=== PATIENT | male | born 1950 | race Caucasian/White ===

== ENCOUNTER 2016-10-04 15:39 | Emergency (ER) | payer OTHER ==
--- NOTE | 2016-10-04 15:53 | PDOC ---
Hand / Wrist Injury HPI - General Chief Complaint: Upper Extremity Problem/Injury Stated Complaint: right wrist pain Date Seen by Provider: 10/04/16 Time Seen by Provider: 15:49 Source: POSITIVE: Patient Exam Limitations: POSITIVE: No limitations Nurse's Notes Reviewed & Considered: Yes - History of Present Illness Initial Comments: Patient comes in today with chief complaint of right wrist pain. History: Patient fell yesterday towards his right side landing with his arm outstretched and his right hand contacted the ground on the medial margin. Now with increased pain and decreased range of motion. Have you received a tetanus shot in the past 10 years?: Unknown Body Location Affected: REPORTS: Upper Extremity (R) (Wrist) Timing: REPORTS: Abrupt Duration: <24 hours Severity: Mild Location at Time of Onset: REPORTS: Home Context: REPORTS: Fall Location of Injury: REPORTS: Right, Wrist Quality: REPORTS: "Pain", Sharpness, Stabbing Modifying Factors: REPORTS: Movement, Rest Any Prior Injuries Related to Current Complaint?: No - Patient Home Medications Home Medications: Home Medications NK [No Home Medications Reported] 10/04/16 - Patient Allergies Allergies/Adverse Reactions: Allergies Allergy/AdvReac Type Severity Reaction Status Date / Time No Known Drug Allergies Allergy NOT Verified 10/04/16 15:46 APPLICABLE Past Medical History - heen HEENT History: Denies History Cardiovascular History: Denies History Respiratory History: Denies History Gastrointestinal History: Denies History Genitourinary History: Denies History Endocrine History: Denies History Musculoskeletal History: Denies History Neurological History: Denies History Blood Disorders: Denies History Psychiatric History: Denies History Male Reproductive History: Denies History Cancer History: Denies History In Past Year Been Physically Harmed or Verbally Threatened: No History of MDRO: No Tobacco Use: Never Smoker Alcohol Use: Occasionally Substance Use Type: None Previous Surgical History: Yes Type / Date of Surgery: FATTY TUMOR REMOVED RIGHT SHOULDER AND SIDE OF NECK. RIGHT GANGLION CYST REMOVAL Significant Family History: No pertinent family hx ROS - Limitations ROS Limitations: No Limitations Constitution: REPORTS: Denies Symptoms Cardiovascular: REPORTS: Denies Cardiac Symptoms Respiratory: REPORTS: Denies Resp Symptoms Neurological: REPORTS: Denies Neuro Symptoms Gastrointestinal: REPORTS: Denies GI Symptoms Endocrine: REPORTS: Denies Symptoms Musculoskeletal: REPORTS: Joint Pain Genitourinary: REPORTS: Denies Symptoms Eyes: REPORTS: Denies Symptoms ENT: REPORTS: Denies Symptoms Skin: REPORTS: Denies Skin Symptoms Lympathic: REPORTS: Denies Lympathic Symptoms Immunologic: POSITIVE: Denies Symptoms Psychiatric: POSITIVE: Denies Psych Symptoms Hand / Wrist Injury Exam - General Appearance General Appearance: POSITIVE: Alert, Cooperative, No Acute Distress, No Evidence of Trauma - Extremities Upper Extremity: POSITIVE: Normal Inspection, No Evidence of FB, Bony Tenderness , Uninjured Above Wrist Neurovascular / Tendon: POSITIVE: Sensation Normal, Motor Normal, No Vascular Compromise, Tendon Function Normal Skin: POSITIVE: Warm, Dry Hand / Wrist Injury Progress - Results Reviewed by me Xrays/CTs/US Reviewed by me: Yes Discussed with Radiologist: No - Patient's Progress Pain Medication Addressed: POSITIVE: Patient Refused Re-Examine Time: 16:22 Status: POSITIVE: Improved MDM / ED Course: Patient brought into the emergency Department, examined, radiographic studies ordered. He refused pain medication. X-rays reveal no acute osseous abnormalities per my interpretation. Assessment: Wrist strain. Plan: Cock-up splint, ice alternating heat, Aleve. Follow-up if no improvement in 7-10 days. - Consult Counseled: POSITIVE: Patient, RE: Radiology Results, RE: DX Patient Care Time - Estimated PCT Patient Care Time (In Minutes): 15 Vital Signs - Recent Vital Signs Vital Signs: Vital Signs (Last 8 hours) Temp Pulse Resp BP Pulse Ox 10/04/16 15:39 98.5 F 100 18 136/93 94 - VS Reviewed Vital Signs Reviewed: Yes Discharge Clinical Impression: Sprain Discharge Disposition: Discharged to Home Condition: Good Patient Instructions Given at Discharge: Wrist Injury (ED)
[2016-10-04 15:55] VITALS: RESP 18; TEMP 98.5
--- NOTE | 2016-10-04 17:18 | DI ---
RIGHT WRIST, 10/04/2016 3:48 PM: Clinical History: Right wrist pain. Injury. The patient fell. Previous Exam: None at this facility. 3 views are submitted. There is no acute soft tissue, osseous, or joint abnormality. Reading: Normal right wrist exam.
== END 2016-10-04 17:24 | disposition home or self-care (01) ==
LOC: ER 15:39
DX: S63.501A Unspecified sprain of right wrist, initial encounter (principal); W18.39XA Other fall on same level, initial encounter; Y99.0 Civilian activity done for income or pay
CPT/HCPCS: 73110; 99282

== ENCOUNTER 2016-12-01 11:40 | Emergency (ER) | payer OTHER ==
[2016-12-01 12:20] VITALS: RESP 22; TEMP 96.5
--- NOTE | 2016-12-01 13:16 | DI ---
RIGHT RIB SERIES WITH PA CHEST X-RAY, 12/01/2016 12:32 PM: Clinical History: Trauma to the right ribs. PA Chest: Previous Exam: None at this facility. There is no acute soft tissue or bony abnormality. Heart size is normal. Lungs are clear. Mediastinal structures are normal. RIGHT Rib Series: There is no rib fracture noted. The visualized portions of the lung are clear. Reading: Normal right rib series and PA chest x-ray.
--- NOTE | 2016-12-01 13:16 | DI ---
AP PELVIS and RIGHT HIP, 12/01/2016 12:31 PM: Clinical History: Trauma to the right hip. Previous Exam: None at this facility. There is no soft tissue abnormality. The bony structures of the pelvis are normal. 2 views of the rig ht hip are normal. Readin. Normal right hip exam. 2. The AP pelvis view is unremarkable.
--- NOTE | 2016-12-01 13:29 | DI ---
RIGHT SHOULDER, 12/01/2016 12:34 PM: Clinical History: Trauma. Previous Exam: None at this facility. 3 views are submitted. There is no acute soft tissue, osseous, or joint abnormality. The visualized p ortions of the right lung and apex are normal. Reading: Normal right shoulder exam.
--- NOTE | 2016-12-01 13:32 | DI ---
LUMBAR SPINE SERIES, 12/01/2016 1:15 PM: Clinical History: Low back pain secondary to a fall. Previous Exam: None at this facility. 3 routine upright views are submitted. The vertebral bodies are of normal height and size. No fractur es are noted. The disc spaces are normal. The pedicles and posterior elements are unremarkable. Both SI joints are normal. Reading: Normal lumbar spine series.
--- NOTE | 2016-12-01 17:58 | PDOC ---
Fall HPI - General Chief Complaint: Fall Stated Complaint: FELL OUT OF TRUCK Date Seen by Provider: 12/01/16 Time Seen by Provider: 12:20 Source: POSITIVE: Patient Exam Limitations: POSITIVE: No limitations Nurse's Notes Reviewed & Considered: Yes - History of Present Illness Initial Comments: The patient is a 66-year-old male. He states that approximately one hour prior to arriving to the emergency room he was getting out of his truck. He states he slipped and fell approximately 2 feet onto some pavement. He fell on to his right lateral thorax and right posterior shoulder and hip. He presents to the emergency room complaining of pain over the right lateral thorax, posterior aspect of the right shoulder, right paralumbar area and posterior aspect of the right hip. He is ambulatory to the emergency room. He states he sustained no head, neck, chest or abdominal trauma. No focal neurologic symptoms. Have you received a tetanus shot in the past 10 years?: Unknown Body Location Affected: REPORTS: Upper Extremity (R) (Right shoulder), Lower Extremity (R) (Right hip), Chest (Right lateral thorax), Back (Right paralumbar area) Timing: REPORTS: Abrupt Duration: 1 hour Severity: Moderate Context of Fall: REPORTS: Slipped, Lost Balance. DENIES: Tripped, Became Dizzy , Fainted, Reported Assault Location of Fall: REPORTS: Work Fell From Height (in feet): 2 Quality: REPORTS: "Pain" Associated Symptoms: REPORTS: Recalls Injury, Recalls Coming to ER. DENIES: Dazed, Seizure, Trouble Breathing, Memory Impairment, Blow to Head, Lost Consciousness, Other Location of Injuries / Pain: REPORTS: Right, Chest, Lower Back, Shoulder, Hip Any Prior Injuries Related to Current Complaint?: No - Patient Home Medications Home Medications: Home Medications HYDROcodone/APAP 10/325 Tab [[place] 10/325 Tab] 1 tab PO Q4H PRN #12 tab Naproxen Sodium [Aleve] 220 mg PO PRN PRN 12/01/16 - Patient Allergies Allergies/Adverse Reactions: Allergies Allergy/AdvReac Type Severity Reaction Status Date / Time No Known Drug Allergies Allergy NOT Verified 12/01/16 12:12 APPLICABLE Past Medical History - heen HEENT History: Denies History Cardiovascular History: Denies History Respiratory History: Denies History Gastrointestinal History: Denies History Genitourinary History: Denies History Endocrine History: Denies History Musculoskeletal History: Denies History Prosthesis or Implant: No Neurological History: Denies History Blood Disorders: Denies History Psychiatric History: Denies History Male Reproductive History: Denies History Cancer History: Denies History In Past Year Been Physically Harmed or Verbally Threatened: No History of MDRO: No Tobacco Use: Smoker Current Status Unknown Alcohol Use: Occasionally Substance Use Type: None Previous Surgical History: Yes Type / Date of Surgery: FATTY TUMOR REMOVED RIGHT SHOULDER AND SIDE OF NECK. RIGHT GANGLION CYST REMOVAL Anesthesia Reactions: No Malignant Hyperthermia: No Family History of Malignant Hyperthermia: No Significant Family History: No pertinent family hx Past Medical History Reviewed: Reviewed - No Changes ROS - Limitations ROS Limitations: No Limitations Constitution: REPORTS: Denies Symptoms Cardiovascular: REPORTS: Denies Cardiac Symptoms Respiratory: REPORTS: Denies Resp Symptoms Neurological: REPORTS: Denies Neuro Symptoms Gastrointestinal: REPORTS: Denies GI Symptoms Endocrine: REPORTS: Denies Symptoms Musculoskeletal: REPORTS: Back Pain (Right paralumbar back pain), Joint Pain ( Posterior right shoulder and posterior right hip), Recent Injury (As above) Genitourinary: REPORTS: Denies Symptoms Eyes: REPORTS: Denies Symptoms ENT: REPORTS: Denies Symptoms Skin: REPORTS: Other (Superficial abrasions posterior aspect of right elbow) Lympathic: REPORTS: Denies Lympathic Symptoms Immunologic: POSITIVE: Denies Symptoms Psychiatric: POSITIVE: Denies Psych Symptoms Fall Physical Exam - General Appearance General Appearance: POSITIVE: Alert, Cooperative, No Acute Distress, No Evidence of Trauma - HEENT HEENT: POSITIVE: Head Inspection Nml, Eyes Inspection Nml, Ears Inspection Nml, Nose Inspection Nml, Oral/Dental Inspect. Nml, Pharynx Inspect. Nml, PERRL, EOMI - Pupil Size Pupil Size: 4 mm: Bilateral (PERRLA) - Neck Neck: POSITIVE: Non Tender, Painless ROM, Trachea Midline, Nexus Criteria Negative - Respiratory / CVS Respiratory / CVS: POSITIVE: No Ecchymosis, Breath Sounds Normal, No Respiratory Distress, Heart Sounds Normal, Regular Rate/Rhythm, Rib Tenderness ( Right lateral thorax), Tenderness (Right lateral thorax), See Diagram. NEGATIVE : Chest Non Tender, Rib Palpable FX, Crepitus, SubQ Emphysema, Splinting, Paradoxical Movements, Decreased Breath Sounds, Ecchymosis, Swelling, Abrasion(s ), Wheezes, Rales, Rhonchi, Tachycardia, Bradycardia, Irregularly Irreg Rate Peripheral Pulses: Radial (R): 2+, Radial (L): 2+ - Abdomen Abdomen: Soft: (All Quadrants), Normal Bowel Sounds: (All Quadrants), Denies Tenderness: (All Quadrants), No Splenomegaly: (All Quadrants), No Hepatomegaly: (All Quadrants), No Guarding: (All Quadrants), No Rebound: (All Quadrants), No Palpable Pulse: (All Quadrants), No Palpabale Mass: (All Quadrants), No Distention: (All Quadrants), No Rigidity: (All Quadrants) - Neuro / Psych Neuro / Psych: POSITIVE: Oriented X3, 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 NEGATIVE: Ecchymosis, Laceration, Crepitus, Diaphoresis, Decubitus - Back Back: POSITIVE: No CVA Tenderness, No Vertebral Tenderness, See Diagram ( Discomfort on palpation right paralumbar musculature). NEGATIVE: Non Tender, Painless ROM, Vertebral Pt. Tenderness, CVA Tenderness (R), CVA Tenderness (L), Muscle Spasm - Extremities Extremity Assessment: Non-Tender: (LUE), (RLE), (LLE), Normal ROM: (ALL), No Edema: (ALL), Normal Inspection: (LLE), (RLE), (LUE), No Swelling: (ALL), Pelvis Stable: (ALL), Normal Tendon Exam: (ALL), Tender: (RUE) Additional Extremities Details: Examination of right upper extremity show some moderate discomfort on firm palpation posterior aspect of right shoulder; range of motion of the shoulder is intact. No gross deformities. No sensory motor or vascular symptoms. There is a superficial abrasion to the posterior aspect of the right elbow. Joint Exam: POSITIVE: Normal ROM, Antalgic Gait. NEGATIVE: Ligamentous Instability, Effusion, Click, Crepitus, Limited ROM, Painful, Unable to Bear Weight, Joint Effusion Images - Complete Complete: 1 - Discomfort on palpation 2 - Superficial abrasion 3 - Discomfort on palpation 4 - Discomfort on palpation 5 - Discomfort on palpation Fall Progress - Results Reviewed by me Xrays/CTs/US Reviewed by me: Yes Discussed with Radiologist: Yes Radiology Findings: X-ray right shoulder, x-ray right rib detail with AP chest, x-ray lumbosacral spine, x-ray right hip all normal. - Patient's Progress Pain Medication Addressed: POSITIVE: Yes (Hydrocodone/APAP, one every 6 hours as necessary) School/Work Release Addressed: POSITIVE: Yes Re-Examine Time:: 13:55 Re-Examine Comment: Radiology reports discussed with patient and his Status: POSITIVE: Unchanged, Re-Examined - Consult Counseled: POSITIVE: Patient, Family, RE: Radiology Results, RE: DX, RE: Need for F/U Patient Care Time - Estimated PCT Patient Care Time (In Minutes): 30 Vital Signs - Recent Vital Signs Vital Signs: Vital Signs (Last 8 hours) Temp Pulse Resp BP Pulse Ox 12/01/16 11:54 96.5 F L 85 22 141/83 95 - VS Reviewed Vital Signs Reviewed: Yes Discharge Clinical Impression: Lumbar strain, Contusion Discharge Disposition: Discharged to Home Condition: Stable Prescriptions / Orders: HYDROcodone/APAP 10/325 Tab [[place] 10/325 Tab] 1 tab PO Q4H PRN #12 tab PRN Reason: Pain Patient Instructions Given at Discharge: Low Back Strain (ED), Contusion in Adults (ED) Additional Instructions: Your x-rays are all normal. There is no rib fractures identified on your rib x- ray, however, occasionally you can have a nondisplaced fracture of rib which does not show on an x-ray. Please take deep breaths hourly to keep your lungs well expanded. Tylenol or Advil for mild pain; Tylenol/hydrocodone, one every 4 hours as necessary for more severe pain. Rest. Warm moist compresses to area of discomfort. I given you a work excuse for 72 hours. Return anytime if condition worsens. Follow-up with your primary care provider. Especially return to the emergency room if you develop fevers, coughs, severe shortness of breath. Follow Up With: NONE,NONE [Primary Care Provider] - (Instructions as above. Return here anytime if condition worsens. Follow-up with your primary care provider.)
== END 2016-12-01 14:06 | disposition home or self-care (01) ==
LOC: ER 11:40
DX: S39.012A Strain of muscle, fascia and tendon of lower back, initial encounter (principal); S50.311A Abrasion of right elbow, initial encounter; M25.511 Pain in right shoulder; M25.551 Pain in right hip; W17.89XA Other fall from one level to another, initial encounter
CPT/HCPCS: 71101; 72100; 73030; 73502; 99283

== ENCOUNTER 2016-12-04 10:02 | Emergency (ER) | payer OTHER ==
[2016-12-04 10:20] VITALS: RESP 16; TEMP 97.6
[2016-12-04] MEDS ORDERED: ONDANSETRON 4 MG/2 ML VIAL IVP ONE (10:23)
[2016-12-04] MEDS ORDERED: Sodium Chloride 0.9% 1,000 ML PRIMARY IV ONE (10:23)
[2016-12-04] MEDS ORDERED: NORMAL SALINE 10 ML SYRINGE FLUSH IVP PRN (10:23)
[2016-12-04] MEDS ORDERED: MORPHINE SULFATE 2 MG/1 ML IVP ONE (10:23)
--- NOTE | 2016-12-04 10:47 | PDOC ---
General Adult HPI - General Chief Complaint: General Medical Stated Complaint: NO BM/ABD PAIN SINCE FALL MONDAY Date Seen by Provider: 12/04/16 Time Seen by Provider: 10:10 Source: POSITIVE: Patient Exam Limitations: POSITIVE: No limitations Nurse's Notes Reviewed & Considered: Yes - History of Present Illness Initial Comment: The patient is a 66-year-old male who presents to the emergency department with continued back and rib pain. 3 days ago he fell from a step on his truck and landed primarily on his right side. He states that initially he had the wind knocked out of him and it took him 15 or 20 minutes before he could get up and move around. He landed primarily on his right shoulder, right side of his ribs and pelvis. He did not hit his head and denies any loss of consciousness. He was evaluated here in the emergency department and had x-rays including chest x- ray, pelvis, shoulder and lumbar spine all of which were unremarkable. He was prescribed hydrocodone for pain. He states that since he fell he has not been able to have a bowel movement. He has continued tearing pain in his right lower back and pelvis region. This is worsened with movement. His pain at rest is about a 3 or 4 out of 10 and with movement rises to a 10 out of 10. He also has pain in the posterior aspect of his ribs on the right side. He stopped taking the hydrocodone because he thought this might be making him constipated and has been taking only Aleve the past 24 hours. He denies any difficulty with urination or hematuria. He has not had any cough or increased shortness of breath. He is concerned about internal bleeding and injury. Have you received a tetanus shot in the past 10 years?: Unknown - Patient Home Medications Home Medications: Home Medications HYDROcodone/APAP 10/325 Tab [[place] 10/325 Tab] 1 tab PO Q4H PRN #12 tab Naproxen Sodium [Aleve] 220 mg PO PRN PRN 12/01/16 oxyCODONE/APAP 5/325 Tab [Percocet 5/325 Tab] 1 tab PO Q4H PRN #15 tab - Patient Allergies Allergies/Adverse Reactions: Allergies Allergy/AdvReac Type Severity Reaction Status Date / Time No Known Drug Allergies Allergy NOT Verified 12/01/16 12:12 APPLICABLE Past Medical History - heen HEENT History: Denies History Cardiovascular History: Denies History Respiratory History: Denies History Gastrointestinal History: Denies History Genitourinary History: Denies History Endocrine History: Denies History Musculoskeletal History: Denies History Prosthesis or Implant: No Neurological History: Denies History Blood Disorders: Denies History Psychiatric History: Denies History History of Sexually Transmitted Diseases: No Cancer History: Denies History In Past Year Been Physically Harmed or Verbally Threatened: No History of MDRO: No History of Other Communicable Diseases: No Tobacco Use: Never Smoker Alcohol Use: Other Type of alcohol normally used: Beer How much alcohol do you normally drink a day?: daily Substance Use Type: None Previous Surgical History: Yes Type / Date of Surgery: FATTY TUMOR REMOVED RIGHT SHOULDER AND SIDE OF NECK. RIGHT GANGLION CYST REMOVAL Anesthesia Reactions: No Malignant Hyperthermia: No Significant Family History: No pertinent family hx Past Medical History Reviewed: Reviewed - No Changes ROS - Limitations ROS Limitations: No Limitations Constitution: DENIES: Chills, Fever Cardiovascular: REPORTS: Denies Cardiac Symptoms Respiratory: REPORTS: Hurts To Breathe. DENIES: Cough Non Productive, Cough Productive, Shortness Of Breath Neurological: DENIES: Headache, Numbness, Weakness Gastrointestinal: REPORTS: Abdominal Pain, Nausea, Constipation (No BM since the accident). DENIES: Vomitting Genitourinary: REPORTS: Denies Symptoms ENT: REPORTS: Denies Symptoms Skin: REPORTS: Denies Skin Symptoms. DENIES: Rash General Adult Exam - General Appearance General Appearance: POSITIVE: Alert, Cooperative, No Acute Distress - HEENT HEENT: POSITIVE: Head Inspection Nml, Eyes Inspection Nml, Ears Inspection Nml, Nose Inspection Nml, Pharynx Inspect. Nml - Neck Neck: POSITIVE: Normal Inspection, Other (No midline C-spine tenderness) - Respiratory Respiratory: POSITIVE: No Respiratory Distress, Breath Sounds Normal, Other (He does have tenderness on the right posterior and lateral chest wall) - Cardiovascular Cardiovascular: POSITIVE: Regular Rate & Rhythm, No Murmur Peripheral Pulses: Dorsalis-pedis (R): 2+, Dorsalis-pedis (L): 2+ - Abdomen Abdomen: Soft: (All Quadrants), Normal Bowel Sounds: (All Quadrants), No Distention: (All Quadrants) Additional Abdominal Details: He has some mild diffuse abdominal tenderness - Back Back: POSITIVE: Other (He does have tenderness in the lumbar region as well as the right CVA) - Skin Skin: POSITIVE: Normal Color, No Rash - Extremities Extremity: Normal ROM: (All Extremities), Normal Inspection: (All Extremities) - Neurological / Psychological Neurological: POSITIVE: Oriented X3, Motor Normal, Sensation Normal, Other (No focal neurologic deficits) General Adult Progress - Results Reviewed by me Xrays/CTs/US Reviewed by me: Yes Discussed with Radiologist: Yes Radiology Findings: CT scan of his chest with IV contrast reveals some increased densities in the right upper and midlungs as well as a pulmonary nodule in the lung base of etiology per radiologist. There is no acute fracture , no pneumothorax or hemothorax. CT scan of the abdomen and pelvis reveals no evidence of fracture to fine her pelvis, no acute abdominal injury per radiologist. Lab Results Reviewed: Yes Lab Results:: Laboratory Results 12/04/16 12/04/16 Range/Units 10:35 11:55 WBC 5.01 (4.8-10.8) 10^3/uL RBC 5.01 (4.70-6.10) 10^6/uL Hgb 15.5 (14.0-18.0) g/dL Hct 45.9 (42.0-52.0) % MCV 91.6 H (80-90) FL MCH 30.9 (27-31) PG MCHC 33.8 (33-37) g/dL RDW Std Deviation 46.5 (39-50) fL RDW Coeff of James 14.1 (11.5-14.5) % Plt Count 281 (140-350) 10*3/uL MPV 10.3 (7.4-12.2) FL Immature Gran % (Auto) 0.2 (0-5) % Neut % (Auto) 63.4 (50-80) % Lymph % (Auto) 20.4 (10-50) % [place] % (Auto) 13.0 (5-15) % Eos % (Auto) 2.4 (0-8) % Baso % (Auto) 0.6 (0-1) % Immature Gran # (Auto) 0.01 10*3/UL Neut # (Auto) 3.18 10*3/UL Lymph # (Auto) 1.02 10*3/uL [place] # (Auto) 0.65 (0.3-0.8) 10*3/UL Eos # (Auto) 0.12 10*3/UL Baso # (Auto) 0.03 10*3/UL WBC Morphology Comment Normal morphology (NORM) Plt Morphology Comment Normal morphology (NORM) RBC Morph Comment Normal morphology (NORM) Sodium 140 (135-145) meq/L Potassium 4.5 (3.8-5.2) meq/L Chloride 103 (98-112) meq/L Carbon Dioxide 24 (23-33) meq/L Anion Gap 13 (5-20) BUN 14 (7-22) mg/dL Creatinine 0.9 (0.70-1.50) mg/dL Estimated GFR > 60 (>60 ml/min/1.73m(2)) BUN/Creatinine Ratio 15.55 (6-20) Glucose 108 (78-110) mg/dL Calculated Osmolality 291.0 (267-292) mOsm/kg Calcium 9.7 (8.7-10.7) mg/dL Total Bilirubin 0.9 (0.3-1.2) mg/dL AST 27 (21-57) IU/L ALT 31 (21-72) IU/L Alkaline Phosphatase 73 (38-126) IU/L Total Protein 7.6 (6.1-8.0) g/dL Albumin 4.5 (3.5-4.8) g/dL Globulin 3.1 (2.50-4.10) g/dL Albumin/Globulin Ratio 1.40 (1.3-2.0) mg/g Amylase 72 (30-110) U/L Lipase 69 (23-300) IU/L Ur Collection Type Clean catch urine Urine Color Yellow Urine Clarity Clear (CLEAR) Urine pH 7.0 (5.0-8.5) Ur Specific [place] 1.010 (1.005-1.030) Urine Protein Negative (NEG) mg/dl Urine Glucose (UA) Negative (NEG) mg/dL Urine Ketones Negative (NEG) Urine Occult Blood Negative (NEG) Urine Nitrate Negative (NEG) Urine Bilirubin Negative (NEG) Urine Urobilinogen 0.2 (0.2) EU/dL Ur Leukocyte Esterase Negative (NEG) Ur Culture Indicated? Culture not set - Patient's Progress MDM / ED Course: An IV was established and the patient received morphine 2 mg and Zofran 4 mg IV for pain. Laboratory results are all unremarkable, emesis is normal. CT scan of the chest abdomen pelvis with IV contrast reveals some increased densities in the right upper lobe and right middle lobe of unknown etiology per radiologist. He also has a pulmonary nodule. The radiologist recommended follow-up. These densities given his clinical history may represent some degree of pulmonary contusion. He did not any evidence of acute fracture per radiologist in his ribs, spine or pelvis. His clinical presentation is consistent with nondisplaced rib fractures which might not be visible on CT. By history the patient also has had constipation since his fall. He is advised to start MiraLAX daily. In addition he was prescribed Percocet as needed for pain. He was advised to continue NSAIDs. He will return to the emergency room if increased pain, worsening or change in symptoms. Recommend follow-up with primary care in 3-5 days. - Consult Counseled: POSITIVE: Patient, Family, RE: Lab Results, RE: Radiology Results, RE : DX, RE: Need for F/U Patient Care Time - Estimated PCT Patient Care Time (In Minutes): 35 Vital Signs - Recent Vital Signs Vital Signs: Vital Signs (Last 8 hours) Temp Pulse Resp BP Pulse Ox 12/04/16 10:09 97.6 F 96 16 135/93 95 - VS Reviewed Vital Signs Reviewed: Yes Discharge Clinical Impression: Constipation, Contusion, Rib contusion, Lumbar strain Condition: Stable Prescriptions / Orders: oxyCODONE/APAP 5/325 Tab [Percocet 5/325 Tab] 1 tab PO Q4H PRN #15 tab PRN Reason: Pain Patient Instructions Given at Discharge: Constipation (ED), Contusion in Adults (ED), Back Pain (ED) Additional Instructions: Your lab work and urinalysis were all normal today. In addition the CAT scan done of your chest, abdomen and pelvis does not reveal any obvious fracture or obvious internal injury. There was some increased density in the right upper and midlung which the radiologist thought could be infectious however this could also represent bruising related to your recent fall. There was no visible fracture in the ribs however it is certainly possible you could have a nondisplaced fracture of the ribs on the right side. There was no evidence of fracture in the spine or pelvis. At this point I would recommend continuing Aleve 2 tablets twice a day with food. You have also been prescribed Percocet 5 /325 which she can take one every 4-6 hours as needed for pain. Because of your recent injury as well as taking pain medication this has slowed her bowels down. Would recommend taking MiraLAX 1 capful in a glass of juice daily. Return to the emergency room if increased pain, difficulty breathing, increased abdominal pain or vomiting, fever, any worsening or change in symptoms. Recommend follow-up with primary care in 3-4 days. Follow Up With: NONE,NONE [Primary Care Provider] -
[2016-12-04 10:51] LABS: BASOPHILS # (AUTO) 0.03 10*3/UL; BASOPHILS % (AUTO) 0.6 % (0-1); EOSINOPHILS # (AUTO) 0.12 10*3/UL; EOSINOPHILS % (AUTO) 2.4 % (0-8); HEMATOCRIT 45.9 % (42.0-52.0); HEMOGLOBIN 15.5 g/dL (14.0-18.0); LYMPHOCYTES # (AUTO) 1.02 10*3/uL; MEAN CORPUSCULAR HEMOGLOBIN 30.9 PG (27-31); MEAN CORPUSCULAR HGB CONC 33.8 g/dL (33-37); MEAN PLATELET VOLUME 10.3 FL (7.4-12.2); MONOCYTES # (AUTO) 0.65 10*3/UL (0.3-0.8); NEUTROPHILS # (AUTO) 3.18 10*3/UL; NEUTROPHILS % (AUTO) 63.4 % (50-80); RED BLOOD COUNT 5.01 10^6/uL (4.70-6.10)
[2016-12-04 10:55] LABS: PLATELET MORPHOLOGY COMMENT NORMAL MORPHOLOGY (NORM); RBC MORPHOLOGY COMMENT NORMAL MORPHOLOGY (NORM); WBC MORPHOLOGY COMMENT NORMAL MORPHOLOGY (NORM)
[2016-12-04 11:06] LABS: BLOOD UREA NITROGEN 14 mg/dL (7-22); BUN/CREATININE RATIO 15.55 (6-20); CALCIUM 9.7 mg/dL (8.7-10.7); EST GLOMERULAR FILTRATION > 60 (>60 ml/min/1.73m(2)); LIPASE 69 IU/L (23-300); SERUM ALBUMIN 4.5 g/dL (3.5-4.8)
[2016-12-04 12:01] LABS: BILIRUBIN,URINE NEGATIVE (NEG); CLARITY,URINE CLEAR (CLEAR); COLOR,URINE YELLOW; GLUCOSE, URINE (UA) NEGATIVE (NEG); NITRATE,URINE NEGATIVE (NEG); OCCULT BLOOD,URINE NEGATIVE (NEG); PROTEIN,URINE NEGATIVE (NEG); UROBILINOGEN,URINE 0.2 EU/dL (0.2)
[2016-12-04 12:02] LABS: URINE SAMPLE TYPE CLEAN CATCH URINE
--- NOTE | 2016-12-04 12:36 | DI ---
HISTORY: Status post fall. COMPARISON STUDIES: None available. TECHNIQUE: Contiguous 3 mm axial images were obtained from the upper abdomen through the pelvis follo wing IV contrast. 383 images. FINDINGS: LUNG BASE: A 1 cm nodule is noted at the left lung base. The lung bases are otherwise clear. No evide nce of airspace consolidation. No pleural effusion. ABDOMEN: The liver, gallbladder and spleen are unremarkable. No liver masses seen. Pancreatic duct is mildly enlarged, without discrete mass lesion. No common bile duct enlargement given patient's age a nd limitations of CT. No evidence of pancreatic mass and adrenal glands appear normal. Normal colon and small bowel. No pericolonic or small bowel mesenteric inflammatory fat stranding. No rmal appendix with no secondary signs of appendicitis. Left and right kidney are unremarkable. No renal stones seen. No evidence of obstructive uropathy. No evidence of pneumoperitoneum, free fluid or of peritoneal abscess. PELVIS: No suspicious pelvic or abdominal adenopathy. VESSELS: Normal enhancement. No significant calcified atherosclerotic disease burden. MUSCULOSKELETAL: Bone mineralization is normal. Asymmetric right SI arthrosis present. No evidence of acute fracture or spinal canal stenosis. IMPRESSION: 1. No evidence of acute abnormality. Normal appendix. 2. No evidence of acute osseous injury. Asymmetric right SI arthrosis. 3. Nonspecific enlarged proximal pancreatic duct without evidence of pancreatic lesion or gross abnor mality of the common bile duct. Recommend routine follow up MRCP for further evaluation. 4. 1 cm nodule at the left lung base. Correlate with risk factors and recommend follow up imaging per Fleischner Society Criteria.
--- NOTE | 2016-12-04 12:50 | DI ---
HISTORY: Status post fall. COMPARISON STUDIES: CT abdomen and pelvis performed the same day. TECHNIQUE: Contiguous 3 mm images were obtained from the thoracic inlet through the upper abdomen aft er IV administration of contrast. Additional images were reconstructed in lung windows with both sag ittal and coronal reformats provided. 359 images. FINDINGS: MEDIASTINUM: Thoracic inlet is clear. No suspicious axillary, hilar, or mediastinal adenopathy is see n. The great vessels, heart, and pericardium appear normal. Thyroid appears normal. LUNGS/AIRWAYS: A 1 cm nodule is noted at the left lung base (axial image 87, coronal image 22). An il l-defined hazy peripheral airspace opacity is seen the left upper lobe (axial image 52, coronal image 50). Similar-appearing opacity in the right upper lobe (axial image 47). A small bleb is noted at th e right posterior medial lung base. No evidence of mass, consolidation or lung contusion. The centra l airways are patent. There is no evidence of intrabronchial lesion, bronchiectasis, or airway thicke willem. PLEURA: No pneumothorax or pleural effusion. There are no calcifications or pleural thickening prese nt. ABDOMEN: Evaluated on comparison Abdomen CT performed concurrently. IMPRESSION: 1. No evidence of acute osseous abnormality. 2. Multifocal ill-defined airspace opacities in the right and left upper lobe. This may represent an atypical infectious process such at OVI/MAC. Recommend pulmonology consultation. 3. 1 cm nodule in the left lower lobe. Correlate with risk factors for appropriate interval follow-up imaging. NOTIFICATION: The above findings were phoned to [place] in the ER Department on 12/04/2016 at 2:55pm SUSAN Carranza
[2016-12-04] MEDS ORDERED: KETOROLAC 15 MG/1 ML VIAL IVP ONE (13:10)
== END 2016-12-04 13:48 | disposition home or self-care (01) ==
LOC: ER 10:02
DX: S20.211D Contusion of right front wall of thorax, subsequent encounter (principal); S39.012D Strain of muscle, fascia and tendon of lower back, subsequent encounter; K59.00 Constipation, unspecified; W17.89XD Other fall from one level to another, subsequent encounter; Y99.0 Civilian activity done for income or pay
CPT/HCPCS: 71260; 74177; 80053; 81003; 82150; 83690; 85025; 96374; 96375; 99283; J1885; J2270; J2405; J7030

== ENCOUNTER → 2017-01-17 | Outpatient (CLI) | payer OTHER ==
--- NOTE | 2017-01-17 11:43 | DI ---
XR T-SPINE 2VW,01/17/2017 9:53 AM: Clinical History: Thoracic radiculopathy. Previous Exam: None at this facility. Findings: 3 views of the thoracic spine are obtained, and demonstrate mild diffuse degenerative changes of the thoracic spine without fractures. There is diffuse osteopenia. The cardiomediastinum is unremarkable. Impression: Diffuse degenerative changes of the thoracic spine without fractures.
--- NOTE | 2017-01-17 11:48 | DI ---
XR RIBS 2VW U/L,01/17/2017 9:53 AM: Clinical History: Rib pain on the right side. Previous Exam: December 01, 2016 Findings: Routine rib series is performed, and demonstrates no evidence of rib fracture. Moderate stool is seen throughout the colon. The lungs are clear. The cardiomediastinum is unremarkable. Impression: No rib fractures identified.
--- NOTE | 2017-01-17 18:05 | DI ---
MRI THORACIC SPINE W/O CN,01/17/2017 2:41 PM: Clinical History: Contusion of the lower back and pelvis. Previous Exam: None at this facility. Findings: Multiplanar MR images are obtained through the thoracic spine with sagittal and coronal reconstructio ns. Bony alignment is anatomic. No fractures are seen. Marrow signal is preserved. There are a few intrao sseous lipomas noted throughout the thoracic spine. There are degenerative changes noted of the lower cervical spine worst at the C5/6 and C6/7 levels. The thoracic spinal cord is normal with normal course, caliber and signal characteristics. Individual intervertebral disc spaces: There is no significant disc bulge and no evidence of neurofor aminal narrowing. Impression: 1. No fracture. 2. No significant stenosis.
== END ==
LOC: MRI 14:35
PROVIDERS: ATTEND Nurse Practitioner
DX: S30.0XXD Contusion of lower back and pelvis, subsequent encounter (principal); R07.81 Pleurodynia; M54.14 Radiculopathy, thoracic region; M85.88 Other specified disorders of bone density and structure, other site; M50.322 Other cervical disc degeneration at C5-C6 level; M50.323 Other cervical disc degeneration at C6-C7 level
CPT/HCPCS: 71100; 72070; 72146

== ENCOUNTER → 2017-02-01 | Outpatient (CLI) | payer OTHER ==
--- NOTE | 2017-02-02 09:16 | DI ---
SPECT/CT C-SPINE W/O CONTRAST, SPECT/CT L-SPINE W/O CONTRAST, SPECT/CT T-SPINE W/O CONTRAST,02/01/2017 12:12 PM: Clinical History: Lumbar vertebral fracture. Previous Exam: MRI thoracic spine performed january and CT chest performed December 04, [address] abdomen and pelvis performed December 04, 2016 Findings: Multiple helically acquired CT images are obtained through the cervical, thoracic and lumbar spine wi thout contrast. Whole body SPECT CT was also performed after intravenous administration of 28.0 mCi o f technetium 99m MDP. SPECT images were obtained 3 hours after the injection. The skull is unremarkable without areas of increased uptake. There is mild increased uptake within the shoulders which is symmetric and within normal limits. There are multiple healing rib fractures involving the right posterior ribs. There is also some mild increased uptake involving the right transverse processes of L1, L2, L3 and L4. These correspond with some healing fractures of the right transverse processes. There is some mild degenerative changes involving the right sacroiliac joint with some very mild incr eased uptake consistent with degenerative change. There is a small focus of increased uptake involving the left anterior compartment. There is no focal uptake within the cervical spine, thoracic spine or lumbar spine. There are no blastic or lytic lesions. Limited evaluation of the brain is unremarkable. Facial bones are unremarkable. The lungs demonstrate some mild subsegmental atelectasis but are otherwise unremarkable. The liver, g allbladder, spleen, adrenals, kidneys and pancreas are unremarkable. The stomach and small bowel is n ot well evaluated. The appendix is normal. Moderate stool seen throughout the colon. There is no free air nor free fluid . The urinary bladder is unremarkable. Impression: 1. Healing right-sided transverse processes from L1-L4. 2. Old healing posterior right rib fractures. 3. Mild degenerative changes of the left knee and the right sacroiliac joint.
== END ==
LOC: NM 12:06
PROVIDERS: ATTEND Neurological Surgery
DX: R07.81 Pleurodynia (principal); S22.41XD Multiple fractures of ribs, right side, subsequent encounter for fracture with routine healing; M54.14 Radiculopathy, thoracic region
CPT/HCPCS: 72125; 72128; 72131; A9503

== ENCOUNTER → 2017-03-03 | Outpatient (CLI) | payer OTHER ==
--- NOTE | 2017-03-03 12:29 | DI ---
MRI LUMBAR SPINE W/O CN,03/03/2017 10:43 AM: Clinical History: Transverse process fracture. Previous Exam: CT SPECT performed February 01, 2017 Findings: Multiplanar MR images are obtained through the lumbar spine without contrast, and demonstrate anatomi c alignment. Vertebral body height is preserved. Multiple intraosseous lipomas are noted. The spinal cord is normal with a normal conus at the L1 level. Paraspinal musculature is unremarkable. The kidneys are also unremarkable. There is a healing right transverse process fracture involving the third lumbar vertebral body. There are a few subcentimeter cysts noted within the kidneys. Individual intervertebral disc spaces: L1/2: No significant stenosis. L2/3: There is a broad-based disc bulge with some annular fissuring and some facet and ligamentum fla vum hypertrophy without significant stenosis. L3/4: There is a broad-based disc bulge with some annular fissuring and some facet and ligamentum fla vum hypertrophy contributing to mild bilateral neural foraminal narrowing. L4/5: There is disc desiccation and a small broad-based disc bulge contributing to no significant mame nosis. L5/S1: No significant stenosis. Impression: Healing right transverse process fracture of L3. No significant central canal nor neural foraminal narrowing despite some mild degenerative disc disea se.
== END ==
LOC: MRI 10:38
PROVIDERS: ATTEND Physician Assistant
DX: S32.008G Other fracture of unspecified lumbar vertebra, subsequent encounter for fracture with delayed healing (principal); S32.038D Other fracture of third lumbar vertebra, subsequent encounter for fracture with routine healing; M51.16 Intervertebral disc disorders with radiculopathy, lumbar region
CPT/HCPCS: 72148